=== PATIENT | female | born 2000 ===

== ENCOUNTER 2024-08-23 11:28 | Emergency (ER) | payer SELFPAY ==
[2024-08-23 11:35] VITALS: BP 122/77; PULSE 80; RESP 16; TEMP 36.6; O2SAT 100
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
[2024-08-23 12:31] LABS: Bilirubin Negative (Negative); Blood Moderate (Negative); Clarity Clear (Clear); Glucose Negative (Negative); Ketones Negative (Negative); Leukocyte Esterase Negative (Negative); Nitrite Negative (Negative); Urobilinogen 0.2 mg/dL (Up to 0.2)
[2024-08-23 12:36] LABS: Abs Immature Grans 0.02 10^3/uL (0.0-0.06); Absolute Basophil Count 0.05 10^3/uL (0.0-0.2); Absolute Eosinophil Count 0.27 10^3/uL (0.0-0.7); Absolute Lymphocyte Count 1.62 10^3/uL (1.2-3.4); Absolute Monocyte Count 0.47 10^3/uL (0.1-0.8); Absolute Neutrophil Count 4.73 10^3/uL (1.2-6.7); Basophils % 0.7 %; Eosinophils % 3.8 %; HCT 38.3 % (36.0-46.0); HGB 12.8 g/dL (11.2-15.7); Immature Grans % 0.3 %; Lymphocytes % 22.6 %; MCH 28.6 pg (27.0-33.0); MCHC 33.4 % (32.0-36.0); MCV 86 fL (80-95); MPV 8.5 fL (8.0-11.0); Monocytes % 6.6 %; Platelet Count 294 10^3/uL (130-400); RBC 4.48 10^6/uL (3.93-5.22); WBC 7.16 10^3/uL (4.4-10.8)
[2024-08-23 12:45] LABS: *AMPHETAMINES SCREEN URINE Negative (Negative); *BARBITURATES SCREEN URINE Negative (Negative); *BENZODIAZEPINES SCREEN URINE Negative (Negative); Cannabinoids THC Positive (Negative); Cocaine Screen,Urine Negative (Negative); METHADONE URINE SCREEN Negative (Negative); OPIATES URINE SCREEN Negative (Negative)
[2024-08-23 12:48] LABS: Tricyclic Antidepressants Negative (Negative)
[2024-08-23 12:50] LABS: Epithelial Cells Moderate HPF (Negative); Other Cells Rare Transitional (Negative); WBC 0-2 HPF (0-5)
[2024-08-23 12:51] LABS: Bacteria Few HPF (Negative); C & S Indicated? No; Casts Negative LPF (Negative); Crystals Negative HPF (Negative); Mucus Moderate (Negative)
[2024-08-23 12:58] LABS: Salicylate < 2.8 mg/dL (<2.8)
[2024-08-23 13:03] LABS: Acetaminophen < 2 ug/mL (10-30)
[2024-08-23 13:10] LABS: ALT 16 U/L (14-59); AST 13 U/L (15-37); Albumin 3.9 g/dL (3.4-5.0); Alkaline Phosphatase 63 U/L (46-116); Anion Gap 8.4 mmol/L (3-11); BUN 9 mg/dL (7-18); Bilirubin, Total 0.39 mg/dL (0.2-1.0); CO2 27.6 mmol/L (21.0-32.0); CREATININE 0.7 mg/dL (0.55-1.02); Calcium 9.1 mg/dL (8.5-10.1); Chloride 108 mmol/L (98-107); Estimated GFR 124.55 (mL/min/1.73m2); Glucose 88 mg/dL (74-106); Potassium 3.5 mmol/L (3.5-5.1); Sodium 144 mmol/L (136-145); TSH (W/Ref FT4) 1.02 uIU/mL (0.36-3.74); Total Protein 7.4 g/dL (6.4-8.2)
--- NOTE | 2024-08-23 17:34 | CMDISCH_ITS ---
Date of service: 08/23/24 Time of Service: 17:34 Care Management Discharge Plan Reason for Hospitalization: SI Discharge Plan: Srini will ne discharged home with a safety plan created in conjunction with [facility] crisis screener Katie. She will likely be admitted to the Care Bed on Wednesday for day treatment which will still allow her to be home with her 3 year old daughter at night. She has a strong support system at home. Patient/Family Education Needs: expectations and limitations SDOH Health Related Social Needs: No Data to Display MH Services (Omit if N/A) Current MH Services: Care Bed (will likely be admitted to Care bed on Wednesday. Undergoing renovations at this time.)
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
--- NOTE | 2024-08-23 19:39 | ED.PROG_ITS ---
Date of service: 08/23/24 Time of Service: 19:39 Medical Decision Making 193: Spoke with Dr. Arana with telepsych who reports that he is cleared her she denies any suicidal ideations or plan to harm herself. He is requesting that we refill her medications. 3 prescriptions on our list refilled. Including famotidine hydroxyzine and methylphenidate. Patient to be discharged into the care of her mother. Quality:SDOH Health Related Social Needs: No Data to Display Discharge Plan Disposition Patient Disposition: Home Condition: Stable Discharge Details Clinical Impression: Depression Primary Care Provider: Unknown,Unknown ED Provider: Balta Reece Home Meds and New Rx's Prescriptions: Continued propranolol .ROUTE famotidine [Acid Controller] 20 mg tablet 20 mg PO DAILY Qty: 30 0RF hydroxyzine HCl 25 mg tablet 25 mg PO TID PRNQty: 30 0RF methylphenidate 10 mg PO DAILY AM 30 Days Qty: 30 0RF Discharge Instructions Instructions: Suicide Prevention, Depression, Adult ED Additional Instructions: You were seen in the emergency department for your thoughts of self-harm, you have the made no preparatory acts to perform any of these actions and you have a safety plan at home and close follow-up with [facility]. You have good supports with your family at home. We are performing a telepsychiatry visit for you to possibly start new medication, if this safety plan is not going well at home please return to the emergency department at once. There is no abnormalities to your laboratory workup today. [facility]]
== END 2024-08-23 19:50 | disposition home or self-care (01) ==
PROVIDERS: Emergency Provider Physician Assistant
DX: R45.851 Suicidal ideations (principal); F32.A Depression, unspecified
CPT/HCPCS: 00123; 36415; 80053; 80307; 81025; 99284; 80320; 80329; 81003; 81015; 84443; 85025